=== PATIENT | male | born 1970 | race Caucasian/White ===

== ENCOUNTER 2017-07-12 06:14 | Emergency (ER) | payer OTHER ==
[~2017-07-12] VITALS: Ht 180.3 cm; Wt 112.8 kg
[2017-07-12 06:47] LABS: BASOPHIL (%) 0.7 % (0-1); BASOPHIL COUNT 0.1 K/uL (0-0.1); EOSINOPHIL (%) 1.9 % (0-5); EOSINOPHIL COUNT 0.1 K/uL (0-0.3); HEMATOCRIT 46.2 % (38.0-50.0); HEMOGLOBIN 16.8 G/DL (12.5-16.6); IMMATURE GRANULOCYTE (%) 0.3 % (0.0-0.7); LYMPHOCYTE (%) 25.8 % (15-42); LYMPHOCYTE COUNT 1.9 K/uL (1.0-2.8); MCH 32.3 PG (29.0-34.0); MCHC 36.4 G/DL (30.0-36.0); MCV 88.8 FL (86-99); MONOCYTE COUNT 0.5 K/uL (0-0.8); NEUTROPHIL (%) 64.3 % (45-76); NEUTROPHIL COUNT 4.7 K/uL (1.8-6.4); PLATELET COUNT 176 K/uL (156-360); RBC DIS.WIDTH-CV 13.3 % (11.8-14.6); RBC DIS.WIDTH-SD 43.5 % (39-53); WHITE BLOOD COUNT 7.3 K/uL (4.1-10.2)
[2017-07-12 07:21] LABS: CHLORIDE 106 MEQ/L (99-109); CREATININE 1.1 MG/DL (0.6-1.3); GFR ESTIMATE (CALCULATED) > 59 mL/min/ (58.99-99999); GLUCOSE 140 mg/dL (70-99); POTASSIUM 3.8 MEQ/L (3.7-5.4); SODIUM 139 MEQ/L (136-147); UREA NITROGEN (BUN) 14 mg/dL (9-23)
[2017-07-12 10:04] LABS: APPEARANCE CLEAR ((CLEAR)); BILIRUBIN NEGATIVE; BLOOD SMALL; COLOR STRAW ((YELLOW)); GLUCOSE (STRIP) NEGATIVE; KETONES NEGATIVE; LEUKOCYTES NEGATIVE; NITRITE NEGATIVE; PROTEIN (STRIP) NEGATIVE; SPECIFIC GRAVITY 1.026 (1.000-1.030); UROBILINOGEN 0.2 MG/DL (0.2-1.0)
[2017-07-12 10:07] LABS: BACTERIA RARE /HPF; EPITHELIAL CELLS NONE SEEN /HPF; MUCUS NONE SEEN /LPF; RED BLOOD CELLS 0-5 /HPF (0-5); WHITE BLOOD CELLS 0-5 /HPF (0-5)
[2017-07-12] MEDS ORDERED: MOTRIN800 MG PO (10:19)
[2017-07-12 10:27] VITALS: BP 158/98
== END 2017-07-12 10:29 | disposition home or self-care (01) ==
LOC: EME 06:14
PROVIDERS: Emergency Medicine
DX: S50.01XA Contusion of right elbow, initial encounter (principal); V44.5XXA Car driver injured in collision with heavy transport vehicle or bus in traffic accident, initial encounter; Y92.410 Unspecified street and highway as the place of occurrence of the external cause; S30.0XXA Contusion of lower back and pelvis, initial encounter; N20.0 Calculus of kidney; K76.0 Fatty (change of) liver, not elsewhere classified; R16.0 Hepatomegaly, not elsewhere classified; M51.87 Other intervertebral disc disorders, lumbosacral region; M25.78 Osteophyte, vertebrae; M50.30 Other cervical disc degeneration, unspecified cervical region; I10 Essential (primary) hypertension; E78.5 Hyperlipidemia, unspecified; Z87.891 Personal history of nicotine dependence; Z88.8 Allergy status to other drugs, medicaments and biological substances; Z91.013 Allergy to seafood
CPT/HCPCS: 70450; 71046; 72040; 72132; 73080; 74177; 80048; 81003; 85025; 99281; 99284; J7030